=== PATIENT | male | born 1980 | race American Indian/Alaskan Native ===

== ENCOUNTER 2018-06-24 21:03 | Emergency (ER) | payer SELFPAY ==
[2018-06-24 21:08] VITALS: BP 148/104
--- NOTE | 2018-06-24 21:57 | Cat Scan Report ---
PROCEDURE: CT HEAD/BRAIN WO CON TECHNIQUE: Computerized tomography of the head was performed without contrast material. CT DOSE LENGTH PRODUCT: 920.5 mGycm HISTORY: Fall COMPARISONS: None . FINDINGS: Brain: Brain density appears normal. No evidence of intracranial hemorrhage. No parenchymal hemorr mariann, mass lesions or mass effect are seen. No abnormal extra-axial fluid collects or masses are see n. Ventricles: Ventricles are normal size and are midline. Bone Windows: No evidence of skull fracture. Paranasal sinuses: Visualized portions are clear.. Mastoid air cells: There is opacification of a few of the mastoid air cells and the right inferiorly. Mastoid air cells otherwise are clear. IMPRESSION: Negative unenhanced CT scan of the brain. No evidence of intracranial hemorrhage or skull fracture. Minimal mastoid air cell disease on the right. This document is electronically signed by Walter Johnson MD., Jun 24 2018 09:55:42 PM ET
--- NOTE | 2018-06-24 22:04 | Cat Scan Report ---
PROCEDURE: CT CERVICAL SPINE WO CON TECHNIQUE: Computerized tomography of the cervical spine was performed from the skull base to T1 wit hout contrast material. CT DOSE LENGTH PRODUCT: 584.3 mGycm HISTORY: Fall . Neck pain COMPARISONS: None . FINDINGS: No fracture or subluxation is visualized. The prevertebral soft tissues appear normal. Posterior [place] ents are intact. There is mild diffuse disc space narrowing throughout the cervical spine. At the C3-4 level there is mild posterior arthritic spurring overlying a mild disc bulge without foca l disc herniation or spinal stenosis. No cord compression is visualized. At C5-C6 there is also posterior osteophytic spurring larger to the right than the left. This overlie s a mild disc bulge without cord compression or spinal stenosis. At C6/C7 There is posterior osteophytic spurring large to the right than the left overlying a disc bu lge. This appears to be narrowing the neural foramen on the right. No cord compression or spinal sten osis is visualized. Impression: No evidence of fracture or subluxation Degenerative disc disease seen throughout the cervical spine as described. This is greatest at C5-6 a nd C6-7 as described above. Milder changes seen at the C3-4 level. This document is electronically signed by Walter Johnson MD., Jun 24 2018 10:02:32 PM ET
--- NOTE | 2018-06-24 22:06 | Cat Scan Report ---
PROCEDURE: CT FACIAL BONES WO CON TECHNIQUE: Spiral CT imaging of the facial bones was obtained without IV contrast. Computer-generate d sagittal and coronal reconstructions were created. HISTORY: Fall . Facial pain and swelling. COMPARISONS: None FINDINGS: No facial fractures are identified. The orbits, zygomas and zygomatic arches as well as the nasal bon e paranasal sinuses and mandible appear intact. There is soft tissue swelling visualized overlying th e right orbit and right side of the forehead. Paranasal sinuses are clear. IMPRESSION: Soft tissue swelling seen overlying the right orbit and right side of the forehead. No facial fractur es are identified.. This document is electronically signed by Walter Johnson MD., Jun 24 2018 10:04:50 PM ET
[2018-06-24] MEDS ORDERED: NORCO 5/325 PO ONE (22:49)
[2018-06-24] MEDS ORDERED: BENADRYL PO ONE (22:49)
[2018-06-24] MEDS ORDERED: AUGMENTIN 875 MG PO ONE (22:49)
[2018-06-25] MEDS ORDERED: BOOSTRIX IM ONE (00:26)
--- NOTE | 2018-06-25 00:30 | Emergency Department Report ---
ED Head Trauma HPI - General Chief complaint: Head Injury Stated complaint: FACIAL INJURY/FALL Time Seen by Provider: 06/24/18 22:46 Source: patient Mode of arrival: Ambulatory Limitations: No Limitations - History of Present Illness Initial comments: Patient is a 37-year-old male who states he fell on yesterday states it was a trip and fall on concrete impacting his face there is a small chin laceration small little puncture . Facial abrasions there is no LOC patient states he was immediately ambulatory after fall is no neck pain no headache no shortness of breath no epistaxis patient is alert and oriented 3 and patellar to baseline per patient as it happened 24 hours ago Complaint: head injury, fall Onset/Timin -: days(s) Mechanism of Injury: mechanical fall Location: frontal, face Loss of Consciousness: no Previous Trauma to this Area: No Place: outdoors Radiation: none Severity: moderate Severity scale (0 -10): 3 Quality: aching Consistency: constant Provoking factors: other (movement ) Other Injuries: none Associated Symptoms: denies other symptoms - Related Data Previous Rx's Medication Instructions Recorded Last Taken Type Amoxicillin/Potassium Clav 1 each PO BID 10 Days #20 tablet 06/25/18 Unknown Rx [Augmentin 875-125 Tablet] Ibuprofen [Motrin 800 MG tab] 800 mg PO Q8HR PRN #30 tablet 06/25/18 Unknown Rx Neomycn/Bacitrc/Polymyx/Pramox 1 applicatio TP BID 10 Days #1 tube 06/25/18 Unknown Rx [Neosporin + Pain Relief Oint] Oxymetazoline 0.05% [Afrin] 2 spray NS BID PRN 3 Days #1 bottle 06/25/18 Unknown Rx Allergies/Adverse reactions: Allergies Allergy/AdvReac Type Severity Reaction Status Date / Time No Known Allergies Allergy Unverified 06/24/18 21:05 ED Review of Systems ROS: Stated complaint: FACIAL INJURY/FALL Other details as noted in HPI Constitutional: denies: chills, fever Eyes: denies: eye pain, eye discharge, vision change ENT: denies: ear pain, throat pain Respiratory: denies: cough, shortness of breath, wheezing Cardiovascular: denies: chest pain, palpitations Endocrine: no symptoms reported Gastrointestinal: denies: abdominal pain, nausea, diarrhea Genitourinary: denies: urgency, dysuria Musculoskeletal: denies: back pain, joint swelling, arthralgia Skin: as per HPI, other (facial abrasions multiple , chin laceration) Neurological: denies: weakness, numbness, paresthesias, confusion, abnormal gait, vertigo Psychiatric: denies: anxiety, depression Hematological/Lymphatic: as per HPI ED Past Medical Hx - Past Medical History Previous Medical History?: No - Surgical History Past Surgical History?: No - Social History Smoking Status: Current Some Day Smoker Substance Use Type: None - Medications Home Medications: Home Medications Medication Instructions Recorded Confirmed Last Taken Type Amoxicillin/Potassium Clav 1 each PO BID 10 Days #20 tablet 06/25/18 Unknown Rx [Augmentin 875-125 Tablet] Ibuprofen [Motrin 800 MG tab] 800 mg PO Q8HR PRN #30 tablet 06/25/18 Unknown Rx Neomycn/Bacitrc/Polymyx/Pramox 1 applicatio TP BID 10 Days #1 tube 06/25/18 Unknown Rx [Neosporin + Pain Relief Oint] Oxymetazoline 0.05% [Afrin] 2 spray NS BID PRN 3 Days #1 bottle 06/25/18 Unknown Rx ED Physical Exam - General Limitations: No Limitations General appearance: alert, in no apparent distress - Head Head exam: Present: normocephalic - Expanded Head Exam Expanded Head exam: Present: laceration, abrasion, contusion, other (multiple abrasions swelling right latera face). Absent: hematoma, racoon eyes, armenta's sign, general tenderness, tenderness of temporal artery, CSF rhinorrhea, CSF otorrhea - Eye Eye exam: Present: normal appearance, PERRL, EOMI, periorbital swelling, periorbital tenderness. Absent: scleral icterus, conjunctival injection, nystagmus Pupils: Present: normal accommodation - ENT ENT exam: Present: mucous membranes moist - Expanded ENT Exam Expanded Ear exam: Present: normal external inspection TM/Canal exam: Mastoid Tenderness: Right TM (mild tenderness ) Mouth exam: Present: tongue normal, laceration (inner lip puncture wound on external penetration ). Absent: drooling, trismus Teeth exam: Present: fractured tooth # (8). Absent: dental tenderness #, gingival enlargement Throat exam: Negative: tonsillar erythema, tonsillomegaly, tonsillar exudate, R peritonsillar mass, L peritonsillar mass - Neck Neck exam: Present: normal inspection (nose and ankle admitted yet her left), full ROM ( she's been started to slide U) - Respiratory Respiratory exam: Present: normal lung sounds bilaterally. Absent: respiratory distress, wheezes, stridor, chest wall tenderness - Cardiovascular Cardiovascular Exam: Present: regular rate, normal rhythm, normal heart sounds. Absent: systolic murmur, diastolic murmur, rubs, gallop - GI/Abdominal GI/Abdominal exam: Present: soft, normal bowel sounds. Absent: distended, tenderness, bruit, hernia - Rectal Rectal exam: Present: deferred - Extremities Exam Extremities exam: Present: normal inspection, full ROM, normal capillary refill. Absent: tenderness, pedal edema, joint swelling, calf tenderness - Back Exam Back exam: Present: normal inspection, full ROM. Absent: tenderness, CVA tenderness (R), CVA tenderness (L), muscle spasm, paraspinal tenderness, vertebral tenderness, rash noted - Neurological Exam Neurological exam: Present: alert, oriented X3, CN II-XII intact, normal gait, reflexes normal. Absent: motor sensory deficit - Expanded Neurological Exam Expanded Patient oriented to: Present: person, place, time Speech: Present: fluid speech Cranial nerves: EOM's Intact: Normal, Gag Reflex: Normal, Tongue Deviation: No rmal, Nystagmus: Normal, Facial Sensation: Normal Cerebellar function: Finger to Nose: Normal, Heel to Mari: Normal, Romberg: Normal Upper motor neuron: Cisco Neglect: Normal, Pronator Drift: Normal, Babinski Sign: Normal, Sensory Extinction: Normal Sensory exam: Upper Extremity Light Touch: Normal, Upper Extremity Pin Prick: Normal, Upper Extremity Temperature: Normal, UE 2 Point Discrimination: Normal, Lower Extremity Light Touch: Normal, Lower Extremity Pin Prick: Normal, Lower Extremity Temperature: Normal, LE 2 Point Discrimination: Normal Motor strength exam: RUE: 5, LUE: 5, RLE: 5, LLE: 5 Best Eye Response ([place]auryn): (4) open spontaneously Best Motor Response ([place]): (6) obeys commands Best Verbal Response ([place]): (5) oriented Lauryn Total: 15 - Psychiatric Psychiatric exam: Present: normal affect, normal mood - Skin Skin exam: Present: warm, dry, normal color, abrasion (multiple abrasions as abo ve ). Absent: rash ED Course Vital Signs 06/24/18 06/24/18 21:06 21:11 Temperature 98.3 F 98.3 F Pulse Rate 84 86 Respiratory 18 18 Rate Blood Pressure 148/104 148/104 O2 Sat by Pulse 99 99 Oximetry - Radiology Data Radiology results: report reviewed, image reviewed PROCEDURE: CT HEAD/BRAIN WO CON TECHNIQUE: Computerized tomography of the head was performed without contrast material. CT DOSE LENGTH PRODUCT: 920.5 mGycm HISTORY: Fall COMPARISONS: None . FINDINGS: Brain: Brain density appears normal. No evidence of intracranial hemorrhage. No parenchymal hemorrhage, mass lesions or mass effect are seen. No abnormal extra-axial fluid collects or masses are seen. Ventricles: Ventricles are normal size and are midline. Bone Windows: No evidence of skull fracture. Paranasal sinuses: Visualized portions are clear.. Mastoid air cells: There is opacification of a few of the mastoid air cells and the right inferiorly. Mastoid air cells otherwise are clear. IMPRESSION: Negative unenhanced CT scan of the brain. No evidence of intracranial hemorrhage or skull fracture. Minimal mastoid air cell disease on the right. This document is electronically signed by Walter Stone MD., Jun 24 2018 09:55:42 PM ET Transcribed By: DFN Dictated By: WALTER STONE MD Electronically Authenticated By: WALTER STONE MD Signed Date/Time: 06/24/182156 DD/ 43 TD/TT: 06/24/182143 PROCEDURE: CT FACIAL BONES WO CON TECHNIQUE: Spiral CT imaging of the facial bones was obtained without IV contrast. Computer- generated sagittal and coronal reconstructions were created. HISTORY: Fall . Facial pain and swelling. COMPARISONS: None FINDINGS: No facial fractures are identified. The orbits, zygomas and zygomatic arches as well as the nasal bone paranasal sinuses and mandible appear intact. There is soft tissue swelling visualized overlying the right orbit and right side of the forehead. Paranasal sinuses are clear. IMPRESSION: Soft tissue swelling seen overlying the right orbit and right side of the fo rehead. No facial fractures are identified.. This document is electronically signed by Walter Stone MD., Jun 24 2018 10:04:50 PM ET Transcribed By: DFN Dictated By: WALTER STONE MD Electronically Authenticated By: WALTER STONE MD Signed Date/Time: 06/24/182205 DD/ 45 TD/TT: 06/24/182145 Ordering Physician: MATT DUBOIS NP Date of Service: 06/24/18 Procedure(s): CT cervical spine wo con Accession Number(s): [id number] cc: MATT DUBOIS NP PROCEDURE: CT CERVICAL SPINE WO CON TECHNIQUE: Computerized tomography of the cervical spine was performed from the skull base to T1 without contrast material. CT DOSE LENGTH PRODUCT: 584.3 mGycm HISTORY: Fall . Neck pain COMPARISONS: None . FINDINGS: No fracture or subluxation is visualized. The prevertebral soft tissues appear normal. Posterior elements are intact. There is mild diffuse disc space narrowing throughout the cervical spine. At the C3-4 level there is mild posterior arthritic spurring overlying a mild disc bulge without focal disc herniation or spinal stenosis. No cord compression is visualized. At C5-C6 there is also posterior osteophytic spurring larger to the right than the left. This overlies a mild disc bulge without cord compression or spinal stenosis. At C6/C7 There is posterior osteophytic spurring large to the right than the left overlying a disc bulge. This appears to be narrowing the neural foramen on the right. No cord compression or spinal stenosis is visualized. Impression: No evidence of fracture or subluxation Degenerative disc disease seen throughout the cervical spine as described. This is greatest at C5-6 and C6-7 as described above. Milder changes seen at the C3-4 level. This document is electronically signed by Walter Stone MD., Jun 24 2018 10:02:32 PM ET Transcribed By: DFN Dictated By: WALTER STONE MD Electronically Authenticated By: WALTER STONE MD Signed Date/Time: 06/24/182203 DD/ 46 TD/TT: 06/24/182146 - Medical Decision Making CT head and cervical spine and facial bones negative for fracture no mastoid or maxillary sinus with moderate opacity were clear with antibiotics for blood multiple abrasions including right forehead and cheek mild periorbital swelling no cellulitis no entrapment visual acuity is 20/20 bilaterally patient is ambulatory with steady gait there is no neck pain or neck range of motion is intact in all faust without restriction, inner lip laceration healing , small chin laceration at bases of nose secondary intention there is no drainage seen small laceration required closing her incident was 24 greater than 24 hours ago and there are no other injuries no distracting injuries patient mentation is appropriate, plan and disposition to home in stable condition with prescriptions for Augmentin and when necessary pain after nasal spray for nasal congestion antibiotic ointment for facial abrasions patient given wound carre instructions verablized understanding of same. patient will follow up with PCP in 2 days for wound check, tp verbalized agreement and understanding of same for dc to home in stable condition at this time. - NEXUS Criteria Focal neurological deficit present: No Midline spinal tenderness present: No Altered level of consciousness: No Intoxication present: No Distracting injury present: No NEXUS results: C-Spine can be cleared clinically by these results. Imaging is not required. Critical care attestation.: If time is entered above; I have spent that time in minutes in the direct care of this critically ill patient, excluding procedure time. ED Disposition Clinical Impression: Fall Qualifiers: Encounter type: initial encounter Qualified Code(s): W19.XXXA - Unspecified fall, initial encounter Minor head injury Qualifiers: Encounter type: initial encounter Qualified Code(s): S09.90XA - Unspecified injury of head, initial encounter Laceration of chin Qualifiers: Encounter type: initial encounter Qualified Code(s): S01.81XA - Laceration without foreign body of other part of head, initial encounter Tooth fracture Qualifiers: Encounter type: initial encounter Fracture type: closed Qualified Code(s): S02.5XXA - Fracture of tooth (traumatic), initial encounter for closed fracture Disposition: DC-01 TO HOME OR SELFCARE Is pt being admited?: No Does the pt Need Aspirin: No Condition: Stable Instructions: Laceration (ED), Fall Prevention (ED), Abrasion (ED), Minor Head Injury (ED) Prescriptions: Oxymetazoline 0.05% [Afrin] 2 spray NS BID PRN 3 Days #1 bottle PRN Reason: congestion sinus Amoxicillin/Potassium Clav [Augmentin 875-125 Tablet] 1 each PO BID 10 Days #20 tablet Ibuprofen [Motrin 800 MG tab] 800 mg PO Q8HR PRN #30 tablet PRN Reason: pain fever Neomycn/Bacitrc/Polymyx/Pramox [Neosporin + Pain Relief Oint] 1 applicatio TP BID 10 Days #1 tube Referrals: [facility] [place] [Outside] - 3-5 Days Forms: Work/School Release Form(ED) Time of Disposition: 00:57
[2018-06-25] MEDS ORDERED: NORCO 5/325 PO ONE (01:51)
== END 2018-06-25 02:57 | disposition home or self-care (01) ==
LOC: ED 21:03
DX: S01.81XA Laceration without foreign body of other part of head, initial encounter (principal); S02.5XXA Fracture of tooth (traumatic), initial encounter for closed fracture; F17.200 Nicotine dependence, unspecified, uncomplicated; W18.30XA Fall on same level, unspecified, initial encounter; Y93.89 Activity, other specified; Y92.89 Other specified places as the place of occurrence of the external cause; Y99.8 Other external cause status
CPT/HCPCS: 70450; 70486; 72125; 90471; 90715